=== PATIENT | male | born 1935 | race Caucasian/White ===

== ENCOUNTER 2017-09-06 17:22 | Emergency (ER) | payer MEDICARE, BC ==
[~2017-09-06] VITALS: Ht 185.4 cm; Wt 113.2 kg
[~2017-09-06 17:22] MED LIST: AMOXICILLIN/CL875 MG PO; AMOXICILLIN500 MG PO; ASPIRIN LOW81 M1 PO; FLONASE NASAL50 MCG; LOVASTATIN20 MG PO; STOOL SOFTENER100 MG PO; TYLENOL ARTH650 M1 PO
[2017-09-06 17:59] LABS: HEMATOCRIT 43.6 % (39.0-50.0); HEMOGLOBIN 14.7 g/dl (14.0-18.0); IMMATURE GRANULOCYTES 0.4 % (0.0-1.0); MEAN CORPUSCULAR HGB 30.7 pG CALC (26.0-32.0); MEAN CORPUSCULAR HGB CONC 33.7 g/L CALC (32.0-36.0); NEUT# 4.36 thou/uL (1.82-7.42); RED BLOOD COUNT 4.79 mill/uL (4.70-6.10); RED CELL DISTRI WIDTH 12.9 % (11.5-15.5)
[2017-09-06 18:05] LABS: URINE BILIRUBIN - DIPSTICK NEGATIVE (NEGATIVE); URINE BLOOD DIPSTICK TRACE-INTACT (NEGATIVE); URINE COLOR YELLOW; URINE GLUCOSE - DIPSTICK NEGATIVE (NEGATIVE); URINE KETONE NEGATIVE (NEGATIVE); URINE LEUK ESTERASE NEGATIVE (NEGATIVE); URINE NITRITE - DIPSTICK NEGATIVE (Negative); URINE PH 5.5 (4.5-8.0); URINE PROTEIN - DIPSTICK NEGATIVE (NEG-TRACE); URINE UROBILINOGEN - DIPSTICK 0.2 E.U./dL (0.2)
[2017-09-06 18:06] LABS: URINE CLARITY CLEAR
[2017-09-06 18:23] LABS: ALBUMIN 4.6 g/dL (3.2-5.0); ALKALINE PHOSPHATASE 110 u/l (38-126); BILIRUBIN, TOTAL 0.6 mg/dL (0.0-1.4); BUN 30 mg/dL (8-23); BUN/CREATININE RATIO 23 (12-20 (CALC)); CALCIUM 10.2 mg/dL (8.4-10.2); CARBON DIOXIDE 24 mmol/l (22-30); CHLORIDE 104 mmol/l (95-108); CREATININE 1.3 mg/dL (0.7-1.3); GFR 53 ML/MIN (>=60 (CALC)); GFR FOR AFR.AMER. > 60 ML/MIN (>=60 (CALC)); GLUCOSE 110 mg/dL (82-115); LIPASE 172 u/l (23-300); SGOT/AST 28 u/l (19-48); SGPT/ALT 30 u/l (11-66); SODIUM 142 mmol/l (137-146); TOTAL PROTEIN 7.9 g/dL (6.3-8.2)
[2017-09-06 18:24] LABS: ANION GAP 19 (6-22 (CALC)); POTASSIUM 5.2 mmol/l (3.5-5.1)
[2017-09-06 20:50] VITALS: BP 169/73
== END 2017-09-06 20:50 | disposition home or self-care (01) ==
LOC: ED 17:22
PROVIDERS: Family Medicine
DX: R10.11 Right upper quadrant pain (principal); I10 Essential (primary) hypertension; Z85.46 Personal history of malignant neoplasm of prostate; Z85.118 Personal history of other malignant neoplasm of bronchus and lung
CPT/HCPCS: Q9967; S0164

== ENCOUNTER 2018-12-09 10:51 | Observation (INO) | payer MEDICARE, BC ==
[~2018-12-09] VITALS: Ht 185.4 cm; Wt 114.8 kg
--- NOTE | 2018-12-09 11:09 | NUR ---
PT TO ROOM PER W/C WITH , STATES HAS BEEN HAVING PRODUCABLE PAIN UNDER RIGHT BREAST SINCE YESTERDAY. MORE SO WITH MOVEMENT, OR DEEP BREATHING. 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
[2018-12-09] MEDS ORDERED: LOSARTAN/HCT1 TA2 PO (11:14)
[2018-12-09] MEDS ORDERED: ASPIRIN81 MG PO (11:15)
--- NOTE | 2018-12-09 11:38 | NUR ---
PT SITTING UP ON STRETCHER, AT BEDSIDE, CALL LIGHT WITHIN REACH. WARM BLANKET GIVEN, SIDE RAILS UP, VITAL SIGNS STABLE
[2018-12-09 12:19] LABS: HEMATOCRIT 44.1 % (39.0-50.0); HEMOGLOBIN 14.7 g/dl (14.0-18.0); IMMATURE GRANULOCYTES 0.4 % (0.0-5.0); MEAN CELL VOLUME 91.1 fL CALC (80.0-100.0); MEAN CORPUSCULAR HGB 30.4 pG CALC (26.0-32.0); MEAN CORPUSCULAR HGB CONC 33.3 g/L CALC (32.0-36.0); NEUT# 8.17 thou/uL (1.82-7.42); RED BLOOD COUNT 4.84 mill/uL (4.70-6.10); RED CELL DISTRI WIDTH 12.6 % (11.5-15.5)
[2018-12-09 12:24] LABS: ALBUMIN 4.5 g/dL (3.2-5.0); ALKALINE PHOSPHATASE 90 u/l (38-126); ANION GAP 17 (6-22 (CALC)); BILIRUBIN, TOTAL 0.8 mg/dL (0.0-1.4); BUN 27 mg/dL (8-23); BUN/CREATININE RATIO 18 (12-20 (CALC)); CARBON DIOXIDE 23 mmol/l (22-30); CHLORIDE 101 mmol/l (95-108); CREATININE 1.5 mg/dL (0.7-1.3); GFR 45 ML/MIN (>=60 (CALC)); GFR FOR AFR.AMER. 54 ML/MIN (>=60 (CALC)); LIPASE 151 u/l (23-300); POTASSIUM 4.5 mmol/l (3.5-5.1); SGOT/AST 20 u/l (19-48); SODIUM 136 mmol/l (137-146); TOTAL PROTEIN 8.1 g/dL (6.3-8.2)
--- NOTE | 2018-12-09 12:36 | NUR ---
PT RESTING QUIETLY ON STRETCHER, AT BEDSIDE.
--- NOTE | 2018-12-09 13:30 | NUR ---
ADVISED OF WAIT TIME FOR CT AND RESULTS. CALL LIGHT REMAINS NEAR AND VITAL SIGNS STABLE
--- NOTE | 2018-12-09 14:02 | NUR ---
PT RESTING QUIETLY ON STRETCHER, ADVISED OF WAIT TIME FOR TEST RESULTS. NO PAIN AT THIS TIME,
--- NOTE | 2018-12-09 15:08 | NUR ---
PT ADVISED OF ADMISSION, WAITING FOR BED ASSIGNMENT. AT BEDSIDE.
--- NOTE | 2018-12-09 16:14 | NUR ---
WAITING BED ASSIGNMENT. VITAL SIGNS STABLE
--- NOTE | 2018-12-09 16:34 | NUR ---
PT TAKEN DOWN FOR CTA OF CHEST FOR ADMISSION ORDERS FROM DR. PERRIN
--- NOTE | 2018-12-09 16:59 | NUR ---
WARM BLANKET GIVEN TO PT. FOOD TRAY ORDERED.
--- NOTE | 2018-12-09 17:32 | NUR ---
REPORT GIVEN TO [facility], THEY ARE STILL CLEANING ROOM WILL CALL DOWN WHEN THE ROOM IS CLEAN FOR ME TO TAKE PT TO FLOOR
--- NOTE | 2018-12-09 18:10 | NUR ---
PT ARRIVED ON FLOOR AT 1810 VIA STRETCHER, ACCOMPANIED BY ER STAFF; WT OBTAINED ON STANDING DIGITAL SCALE; VITALS OBTAINED; PT AMBULATORY WITH STEADY GAIT TO THE RESTROOM; URINE SPECIMEN OBTAINED, VOIDED 100CC CLEAR, YELLOW URINE. ORIENT TO CALL CASTRO; SAFETY PRECAUTION REINFORCE;
--- NOTE | 2018-12-09 18:20 | NUR ---
PT TO FLOOR FOR ADMISSION/NURSE AT BEDSIDE
[2018-12-09 18:28] VITALS: BP 160/80
--- NOTE | 2018-12-09 19:30 | NUR ---
REPORT FROM PHILL GRANT. PT IN ROOM WITH MANY VISITORS. PT STATES PAIN IN RIGHT UPPER ABD/SIDE IS RETURNING. PT DENIES ANY COUGH BUT HAS SOME SOB WITH EXERTION. IV SITE APPEARS HEALTHY. PT DENIES ANY OTHER WANTS OR NEEDS. DISCUSSED POC. PT VERBALIZED UNDERSTANDING. WILL NOTIFIED PHYSICAN OF PT PAIN TO OBTAIN ORDERS. CALL LIGHT WITHIN REACH. WILL CONTINUE TO MONITOR.
--- NOTE | 2018-12-09 20:00 | NUR ---
CLINICAL DOCUMENTATION CLERK PLACED CALL TO DOUGHNUT MACHINE OPERATOR PHYSICIAN. NEW ORDERS FOR TYLENOL 650MG PO Q6H PRN FOR PAIN. WILL ADMINISTER WHEN PHARMACY PROCESSES ORDERS.
--- NOTE | 2018-12-09 22:45 | NUR ---
PT RESTING IN BED WITH EYES CLOSED. NO DISTRESS NOTED. RESPIRATIONS EVEN AND UNLABORED. CALL LIGHT WITHIN REACH. WILL CONTINUE TO MONITOR.
[2018-12-10 00:22] VITALS: BP 96/66
--- NOTE | 2018-12-10 00:25 | NUR ---
PT RESTING IN BED. VS STABLE. NO DISTRESS NOTED. CALL LIGHT WITHIN REACH. WILL CONTINUE TO MONITOR.
--- NOTE | 2018-12-10 04:45 | NUR ---
PT RESTING IN BED ON LEFT SIDE. NO DISTRESS NOTED. PT REPORTS VOIDING ONCE LAST NIGHT. ENCOURAGED PT TO USE CALL LIGHT. WILL CONTINUE TO MONITOR.
[2018-12-10 05:01] VITALS: BP 142/62
--- NOTE | 2018-12-10 07:10 | NUR ---
PT REPORT RECIEVED FROM RUDY JONES. PT SLEEPING. NO S/S OF DISTRESS. AT BEDSIDE. CALL LIGHT IN REACH. WILL CONTINUE TO MONITOR.
[2018-12-10 07:48] VITALS: BP 151/96
--- NOTE | 2018-12-10 07:48 | NUR ---
PT A/O X3. SPEECH IS CLEAR. RESP SHALLOW. RT LUNG FIELD CLEAR. PT HAD A LT PNEUMONECTOMY IN THE PAST. BOWEL SOUNDS ACTIVE X4. STRONG RADIAL AND PEDAL PULSES. #20 LAC SL. FLUSHED AND PATENT. SITE APPEARS HEALTHY. SKIN INTACT. PT HAS TRACE OF EDEMA TO BLE. ENCOURAGED ELEVATION WHEN OOB. PT C/O ACHING PAIN UNDER RT BREAST. 4 OUT OF 10 ON PAIN SCALE. REPOSITIONED FOR COMFORT. PT DENIES ANY FURTHER NEEDS. POC DISCUSSED. SAFETY PRECAUTIONS IN PLACE. CALL LIGHT IN REACH. WILL CONTINUE TO MONITOR.
[2018-12-10 07:53] VITALS: BP 151/96
--- NOTE | 2018-12-10 12:14 | NUR ---
PT UP IN BED. NO C/O PAIN OR NEEDS. CALL LIGHT IN REACH. WILL CONTINUE TO MONITOR.
--- NOTE | 2018-12-10 15:13 | NUR ---
D/C INSTRUCTIONS DISCUSSED W/ PT. PT STATES UNDERSTANDIN. IV REMOVED. CATHETER INTACT. PT GETTING DRESSED. AWAITING VOLUNTEER FOR TRANSPORT DOWNSTAIRS.
--- NOTE | 2018-12-10 15:17 | NUR ---
Discharge instructions given. Patient verbalizes understanding of same. Discharged in stable condition via Wheelchair to Home with spouse. All belongings sent with pt.
== END 2018-12-10 15:15 | disposition home or self-care (01) ==
LOC: ED 10:51 → ED-I 14:28 → ED 16:20 → MS2 16:21
PROVIDERS: Emergency Medicine; ADMIT Internal Medicine Nephrology; ATTEND Internal Medicine Nephrology
DX: R07.81 Pleurodynia (principal); I10 Essential (primary) hypertension; J44.9 Chronic obstructive pulmonary disease, unspecified; E78.00 Pure hypercholesterolemia, unspecified; Z85.46 Personal history of malignant neoplasm of prostate; Z85.118 Personal history of other malignant neoplasm of bronchus and lung; Z90.2 Acquired absence of lung [part of]; Z87.891 Personal history of nicotine dependence; R10.11 Right upper quadrant pain; R07.9 Chest pain, unspecified
CPT/HCPCS: J1650